=== PATIENT | female | born 1990 | race Caucasian/White ===

== ENCOUNTER 2021-03-20 12:39 | Outpatient (CLI) | payer OTHER, MEDICAID, SELFPAY ==
[2021-03-20 13:18] LABS: Basophils # 0.1 10^3/uL (0.0-0.1); Basophils % 0.9 %; Eosinophils # 0.2 10^3/uL (0.0-0.8); Eosinophils % 2.4 %; Hematocrit 42.1 % (37.0-47.0); Hemoglobin 13.1 g/dL (11.5-15.3); Lymphocytes # 1.8 10^3/uL (0.8-4.8); Lymphocytes % 24.5 %; Mean Corpuscular HGB Conc 31.1 g/dL (30.0-36.0); Mean Corpuscular Hemoglobin 25.9 pg (28.0-34.0); Mean Corpuscular Volume 83.4 fl (81-99); Mean Platelet Volume 9.7 fL (7.4-10.4); Monocytes # 0.6 10^3/uL (0.2-0.9); Monocytes % 7.5 %; Neutrophils # 4.84 10^3/uL (1.8-7.7); Neutrophils % 64.6 %; Nucleated Red Blood Cells % 0 %; Platelet Count 415 10^3/cmm (130-400); Red Blood Count 5.05 10^6/uL (4.1-5.3); Red Cell Distribution Width 17.7 % (12.1-15.1); White Blood Count 7.5 10^3/uL (4.0-10.0)
[2021-03-20 13:44] LABS: Alanine Aminotransferase 22 U/L (0-33); Albumin Level 4.1 g/dL (3.5-5.2); Alkaline Phosphatase 155 IU/L (35-105); Anion Gap 15.1 (5-19); Aspartate Amino Transferase 19 U/L (0-32); Blood Urea Nitrogen 11 mg/dL (6-20); Calcium 8.5 mg/dL (8.5-10.5); Carbon Dioxide 24 mmol/L (22-29); Chloride 102 mmol/L (98-107); Globulin 3.8 g/dL (1.3-4.6); Glomerular Filtration Rate 115.1 mL/min (90-130); Glucose 97 mg/dL (65-115); Osmolality Calculated 283 mOsm/kg (285-295); Potassium 4.1 mmol/L (3.5-5.1); Sodium 137 mmol/L (136-145); Total Bilirubin 0.4 mg/dL (0.15-1.2); Total Protein 7.9 g/dL (6.6-8.7)
[2021-03-20 14:11] LABS: Hepatitis B Core AB, Total Non-Reactive (Nonreactive); Hepatitis B Surface Antigen Non-Reactive (Nonreactive); Hepatitis C Virus Antibody Non-Reactive (Nonreactive)
[2021-03-20 14:34] LABS: HIV 1 & 2 Antibody Non-Reactive (Non-Reactiv); HIV 1 & 2 Antigen Non-Reactive (Non-Reactiv)
== END 2021-03-20 12:40 | disposition home or self-care (01) ==
LOC: LAB 12:56
PROVIDERS: PCP Family Medicine; Visit Provider Internal Medicine
DX: L40.9 Psoriasis, unspecified (principal); M25.50 Pain in unspecified joint; Z11.59 Encounter for screening for other viral diseases
CPT/HCPCS: 36415; 80053; 85025; 86704; 86803; 87340; 87806

== ENCOUNTER → 2022-06-10 14:22 | Outpatient (BNVA) | payer OTHER, SELFPAY | PROVIDERS: PCP Family Medicine; Visit Provider Internal Medicine | DX: M25.562 Pain in left knee (principal) | CPT/HCPCS: 73562 ==

== ENCOUNTER → 2023-01-04 14:51 | Outpatient (BNVA) | payer MEDICAID, SELFPAY | PROVIDERS: PCP Family Medicine; Visit Provider Internal Medicine | DX: L40.9 Psoriasis, unspecified (principal); M25.50 Pain in unspecified joint | CPT/HCPCS: 36415; 80053; 85025; 85651; 86140; 99214 ==

== ENCOUNTER → 2023-03-04 10:32 | Outpatient (BNVA) | payer OTHER, SELFPAY | PROVIDERS: PCP Family Medicine; Visit Provider Nurse Practitioner Family | DX: M75.32 Calcific tendinitis of left shoulder (principal); M25.512 Pain in left shoulder | CPT/HCPCS: 73030 ==

== ENCOUNTER 2023-03-05 21:43 | Emergency (ER) | payer OTHER, SELFPAY ==
[2023-03-05 22:01] VITALS: BP 127/86; PULSE 77; RESP 16; TEMP 36.6; O2SAT 98
[2023-03-05 23:01] VITALS: BP 123/87; PULSE 84; TEMP 36.7; O2SAT 100
--- NOTE | 2023-03-05 23:28 | ED_ITS ---
Documented by User: ALEKSANDR Aiken 03/05/23 23:40 HPI - Extremity Problem General: Chief complaint: Extremity Injury, Upper Stated complaint: Left Shoulder Pain Time Seen by Provider: 03/05/23 23:04 Source: patient Mode of arrival: ambulatory Limitations: no limitations History of Present Illness: Patient presents emergency department today for evaluation treatment of continued and worsened left shoulder pain. 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 She states when she was lifting it up towards her shoulder to begin pouring out she injured her left shoulder. Patient was seen and evaluated for Workmen's Comp. yesterday. On x- ray and examination they indicated concern for potential tendinitis and potential rotator cuff injury. Patient reports they told her to use ice, ibuprofen, and Tylenol and that she would have a follow-up with Dr. Hernandez to discuss further imaging and treatment of this injury but, patient states that her pain today is significantly worse with a noticeable decrease in range of motion. Patient reports pain yesterday was from her left superior shoulder region extending down towards the left elbow but, today pain goes all the way down to her fingers. Review of Systems General: Reports: 10 or more systems reviewed and unremarkable except in HPI and below PFSH ED PFSH: Family History Father No problems noted. Family/Other Lupus Rheumatoid arthritis Mother Rheumatoid arthritis Brother Rheumatoid arthritis Other Cancer Diabetes Heart attack Hyperlipidemia Hypertension Stroke Denies family history of Chronic kidney disease (CKD) Social History Smoking and tobacco/nicotine status: current every day tobacco/nicotine user Alcohol intake: current Alcohol intake frequency: holidays/special occasions only Physical Exam Const: COMMON NORMALS: no acute distress, patient oriented x3 and alert HENMT: COMMON NORMALS: normocephalic, atraumatic and hearing grossly normal bilaterally HEAD & SCALP: normocephalic and atraumatic Eye: COMMON NORMALS: Equal, round and reactive pupils present, EOMs intact bilaterally and conjunctivae normal CONJUNCTIVA: Yes conjunctivae normal PUPIL: Yes Equal, round and reactive pupils present Neck/C-Spine: COMMON NORMALS: full ROM and no JVD OTHER: Tender to the left lateral cervical musculature region on palpation Lymph: LYMPHATIC: no lymphadenopathy noted Resp: COMMON NORMALS: normal respiratory effort, No retractions and No use of accessory muscles Cardio: COMMON NORMALS: no JVD and regular rate RATE: regular rate Extremity: NARRATIVE EXTREMITY EXAM: Patient with point tenderness at the AC joint, left anterior shoulder, and the left lateral shoulder on palpation. Patient with little to no abduction or forward flexion. Patient has a little bit of posterior movement of the left arm at the shoulder joint. No arm behind the back capabilities. Patient still able to flex and extend the left elbow and flex and extend the fingers on the left hand. Neuro: COMMON NORMALS: patient oriented x3 SENSORIUM/ORIENTATION: Yes alert Psych: COMMON NORMALS: mental status grossly normal, Normal thought process present, cooperative and normal affect THOUGHT PROCESS: Normal thought process present Skin: COMMON NORMALS: no rashes or lesions noted and turgor normal GENERAL SKIN EXAM: no rashes or lesions noted and turgor normal Course Vital Signs: Vital signs: Vital Signs Temperature 98.0 F 03/05/23 23:01 Pulse Rate 84 03/05/23 23:01 Respiratory Rate 16 03/05/23 22:01 Blood Pressure 123/87 03/05/23 23:01 Pulse Oximetry 100 03/05/23 23:01 Oxygen Delivery Me thod Nasal Cannula 03/05/23 23:01 MDM - Extremity (Nontraumatic) Medical Decision Making Patient presents today for acute worsening of her left shoulder pain from her injury. I did look over the note from yesterday from her initial evaluation and agree with similar findings of left shoulder discomfort suspicious for rotator cuff injury but, patient today has noticeable decrease in her range of motion from yesterday. Patient is currently taking methotrexate from her vehicle glass technician. For that reason, we will avoid steroids but, patient will be given tizanidine and short course of pain medication. Patient was treated here in the emergency department with the same including a Toradol injection as the patient does have a airport shuttle driver tonight. She is instructed to continue following the occupational medicine physician for follow-up. She verbalizes understanding and agreement to treatment plan. Differential Diagnosis Unlikely herpes zoster, gout, cellulitis, superficial thrombophlebitis or deep venous thrombosis of upper extremity No radiology studies performed this visit Discharge Plan Discharge Patient Disposition: Home Clinical Impression: Acute pain of left shoulder, AC joint pain Condition: Stable Prescriptions: New Zanaflex 4 mg capsule 4 mg PO Q8H PRN (Reason: muscle spasticity) Qty: 21 0RF hydrocodone-acetaminophen 5-325 mg tablet 1 tab PO Q8H PRN (Reason: pain) Qty: 7 0RF No Action Collagen PO DAILY Rx Instructions: 3 Tabs daily multivitamin Tablet 1 tab PO DAILY folic acid 1 mg tablet 3 mg PO DAILY Qty: 90 2RF prednisone 5 mg tablet See Rx Instructions PO DAILY Qty: 60 0RF Rx Instructions: 20mg po qday x 3 days, then 15mg po qday x 3 days, then 10mg po qday orally daily; Humira 40 mg/0.8 mL syringe kit 40 mg SUBCUT Q14D Qty: 2 5RF meloxicam 15 mg tablet 15 mg PO DAILY Qty: 30 3RF methotrexate sodium 2.5 mg tablet 17.5 mg PO .qweek Qty: 30 3RF Discharge Orders: Discharge ED (Routine); Ordered 03/05/23 Ordered By: Suni Bernard Referrals: Scotty Madden MD [Primary Care Provider] - Discharge Diet: Usual diet Discharge Activity: Increase activity as tolerated Patient Instructions: Rotator Cuff Injury (ED) Activity Restrictions/Additional Instructions: I did look over your evaluation from yesterday including the interpretation of your imaging. I agree with her physical exam assessment as it is very similar to the one today. I agree that you should have follow-up to discuss the concern of potential connective tissue injury such as rotator cuff injury as this often does require some time to heal and may require orthopedic intervention and physical therapy. I am going to add some medication to help you with pain but, would like you to still take Tylenol, ibuprofen, and ice the joint for 15 to 20 minutes, multiple times throughout the day. 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 Family/Other Lupus Rheumatoid arthritis Mother Rheumatoid arthritis Brother Rheumatoid arthritis Other Cancer Diabetes Heart attack Hyperlipidemia Hypertension Stroke Denies family history of Chronic kidney disease (CKD) Social History Smoking and tobacco/nicotine status: current every day tobacco/nicotine user Alcohol intake: current Alcohol intake frequency: holidays/special occasions only Course Vital Signs: Vital signs: Vital Signs Temperature 98.0 F 03/05/23 23:01 Pulse Rate 84 03/05/23 23:01 Respiratory Rate 16 03/05/23 22:01 Blood Pressure 123/87 03/05/23 23:01 Pulse Oximetry 100 03/05/23 23:01 Oxygen Delivery Me thod Nasal Cannula 03/05/23 23:01 MDM - Extremity (Nontraumatic) Medical Decision Making Patient presents today for acute worsening of her left shoulder pain from her injury. I did look over the note from yesterday from her initial evaluation and agree with similar findings of left shoulder discomfort suspicious for rotator cuff injury but, patient today has noticeable decrease in her range of motion from yesterday. Patient is currently taking methotrexate from her vehicle glass technician. For that reason, we will avoid steroids but, patient will be given tizanidine and short course of pain medication. Patient was treated here in the emergency department with the same including a Toradol injection as the patient does have a airport shuttle driver [employer]. She is instructed to continue following the occupational medicine physician for follow-up. She verbalizes understanding and agreement to treatment plan. This patient was originally seen by Mrs. Marco Antonio PA-C.? I agree with her history, evaluation, and treatment. Discharge Plan Discharge Patient Disposition: Home Clinical Impression: Acute pain of left shoulder, AC joint pain Condition: Stable Prescriptions: New Zanaflex 4 mg capsule 4 mg PO Q8H PRN (Reason: muscle spasticity) Qty: 21 0RF hydrocodone-acetaminophen 5-325 mg tablet 1 tab PO Q8H PRN (Reason: pain) Qty: 7 0RF No Action Collagen PO DAILY Rx Instructions: 3 Tabs daily multivitamin Tablet 1 tab PO DAILY folic acid 1 mg tablet 3 mg PO DAILY Qty: 90 2RF prednisone 5 mg tablet See Rx Instructions PO DAILY Qty: 60 0RF Rx Instructions: 20mg po qday x 3 days, then 15mg po qday x 3 days, then 10mg po qday orally daily; Humira 40 mg/0.8 mL syringe kit 40 mg SUBCUT Q14D Qty: 2 5RF meloxicam 15 mg tablet 15 mg PO DAILY Qty: 30 3RF methotrexate sodium 2.5 mg tablet 17.5 mg PO .qweek Qty: 30 3RF Discharge Orders: Discharge ED (Routine); Ordered 03/05/23 Ordered By: Suni Bernard Referrals: Scotty Madden MD [Primary Care Provider] - Discharge Diet: Usual diet Discharge Activity: Increase activity as tolerated Patient Instructions: Rotator Cuff Injury (ED) Activity Restrictions/Additional Instructions: I did look over your evaluation from yesterday including the interpretation of your imaging. I agree with her physical exam assessment as it is very similar to the one today. I agree that you should have follow-up to discuss the concern of potential connective tissue injury such as rotator cuff injury as this often does require some time to heal and may require orthopedic intervention and physical therapy. I am going to add some medication to help you with pain but, would like you to still take Tylenol, ibuprofen, and ice the joint for 15 to 20 minutes, multiple times throughout the day. Coding Level of Care Code ED Associate Professor Of Mathematics for Nickolas Tucker
[2023-03-05] MEDS: tizanidine 4 mg Tablet PO (23:44)
[2023-03-05] MEDS: HYDROcodone-acetaminophen 5-325 mg Tablet 1 TAB PO (23:44)
[2023-03-05] MEDS: ketorolac 60 mg/2 mL INJ IM (23:45)
[2023-03-06 00:04] VITALS: PULSE 88; RESP 18; O2SAT 96
== END 2023-03-06 00:03 | disposition home or self-care (01) ==
PROVIDERS: Emergency Provider Physician Assistant; PCP Family Medicine
DX: M25.512 Pain in left shoulder (principal); Z72.0 Tobacco use
CPT/HCPCS: 96372; 99284; J1885

== ENCOUNTER 2023-03-29 12:41 | Outpatient (CLI) | payer OTHER, MEDICAID, SELFPAY ==
[2023-03-31 13:30] LABS: Quantiferon Mitogen 8.83 IU/mL; Quantiferon Nil 0.02 IU/mL; Quantiferon TB Gold NEGATIVE (NEGATIVE)
== END 2023-03-29 12:42 | disposition home or self-care (01) ==
PROVIDERS: Internal Medicine Rheumatology; PCP Family Medicine; Visit Provider Internal Medicine
DX: Z11.1 Encounter for screening for respiratory tuberculosis (principal)
CPT/HCPCS: 36415; 86480

== ENCOUNTER → 2023-09-15 15:15 | Outpatient (BNVA) | payer OTHER, MEDICAID, SELFPAY | PROVIDERS: PCP Family Medicine; Visit Provider Internal Medicine Rheumatology | DX: Z79.899 Other long term (current) drug therapy (principal) | CPT/HCPCS: 36415; 80076; 82565; 85025; 85651; 86140 ==

== ENCOUNTER → 2024-05-24 15:26 | Outpatient (BNVA) | payer MEDICAID, BC, SELFPAY | PROVIDERS: PCP Family Medicine; Visit Provider Internal Medicine Rheumatology | DX: L40.0 Psoriasis vulgaris (principal); Z79.899 Other long term (current) drug therapy; L40.50 Arthropathic psoriasis, unspecified; Z71.85 Encounter for immunization safety counseling | CPT/HCPCS: 36415; 80076; 82565; 85025; 85651; 86140 ==

== ENCOUNTER → 2024-09-20 14:41 | Outpatient (BNVA) | payer MEDICAID, SELFPAY | PROVIDERS: PCP Family Medicine; Visit Provider Internal Medicine Rheumatology | DX: L40.0 Psoriasis vulgaris (principal); L40.50 Arthropathic psoriasis, unspecified; Z79.899 Other long term (current) drug therapy; Z71.85 Encounter for immunization safety counseling; M25.559 Pain in unspecified hip | CPT/HCPCS: 36415; 72170; 80076; 82565; 85025; 85651; 86140; 86480; 99214 ==